=== PATIENT | male | born 1980 | race Caucasian/White ===

== ENCOUNTER 2018-03-21 10:25 | Emergency (ER) | payer MEDICAID ==
[~2018-03-21] VITALS: Ht 170.2 cm; Wt 61.2 kg
[~2018-03-21 10:25] MED LIST: ACET325T14 PO; AMIT25TA PO; AMLO10TA2 PO; ASPI325T17 PO; ATOR10TA9 PO; CEFD300C37 PO; CHOL500045 PO; CINA30TA2 PO; CLON0.1T PO; DARB100V SQ; DIAZ2TAB3 PO; DOCU100C33 PO; ERGO2000 PO; FOLI1CAP9 PO; FOLI1TAB39 PO; HYDR-3237 PO; LANT500T PO; LISI40TA PO; METO25TA35 PO; METR500T PO; OMEP-110 PO; ONDA4TAB13 SL; POLY454P4 PO; TRAZ-136 PO
[2018-03-21] MEDS ORDERED: SODIUM CHLORIDE FLUSH 10ML SYR IVF ONE (11:30)
[2018-03-21] MEDS ORDERED: ENALAPRILAT 1.25 MG/ML, 2ML IV ONE (11:30)
[2018-03-21] MEDS ORDERED: ENALAPRILAT 1.25 MG/ML, 2ML ONE ×2 (11:36→11:37)
[2018-03-21 11:52] LABS: BASOPHILS # (AUTO) 0.07 x10^3/uL (0-0.1); BASOPHILS % (AUTO) 1 % (0-1); EOSINOPHILS # (AUTO) 0.18 x10^3/uL (0-0.4); EOSINOPHILS % (AUTO) 3 % (1-7); LYMPHOCYTES # (AUTO) 0.86 x10^3/uL (1-3.4); LYMPHOCYTES % (AUTO) 14 % (22-44); MD NO; MEAN CORPUSCULAR HGB CONC 33.4 g/dL (33.2-36.2); MEAN CORPUSCULAR VOLUME 92.8 fL (81-97); MEAN PLATELET VOLUME 8.4 fL (7.4-10.4); MONOCYTES # (AUTO) 0.47 x10^3/uL (0.2-0.8); MONOCYTES % (AUTO) 8 % (2-9); NEUTROPHILS # (AUTO) 4.58 x10^3/uL (1.8-6.8); NEUTROPHILS % (AUTO) 74 % (42-75); PLATELET COUNT 317 x10^3/uL (130-400); RED CELL DISTRIBUTION WIDTH 14.6 % (9.4-14.8)
[2018-03-21 11:57] LABS: ALBUMIN 3.9 g/dL (3.4-5.0); ANION GAP 9 mmol/L (5-15); CALCIUM 9.9 mg/dL (8.5-10.1); CHLORIDE 95 mmol/L (98-107); CREATININE 6.76 mg/dL (0.7-1.3)
[2018-03-21 12:16] VITALS: BP 168/93
[2018-03-21] MEDS ORDERED: ACETAMINOPHEN 325 MG TABLET ONE (12:59)
[2018-03-21] MEDS ORDERED: ACETAMINOPHEN 325 MG TABLET PO ONE (13:00)
== END 2018-03-21 13:07 | disposition home or self-care (01) ==
LOC: ED 13:00
DX: I10 Essential (primary) hypertension (principal); Z86.73 Personal history of transient ischemic attack (TIA), and cerebral infarction without residual deficits
CPT/HCPCS: 36415; 71045; 80048; 82040; 85025; 93005; 96374; 99285

== ENCOUNTER 2018-06-06 10:10 | Emergency (ER) | payer MEDICAID ==
[~2018-06-06] VITALS: Ht 170.2 cm; Wt 61.5 kg
[~2018-06-06 10:10] MED LIST changes: -AMLO10TA2 PO; +AMLO10TA6 PO
[2018-06-06] MEDS ORDERED: TRANEXAMIC ACID 100 MG/ML, 10ML TP ONE (10:30)
[2018-06-06] MEDS ORDERED: TRANEXAMIC ACID 100 MG/ML, 10ML ONE (10:54)
[2018-06-06 13:13] VITALS: BP 120/80
== END 2018-06-06 13:14 | disposition home or self-care (01) ==
LOC: ED 13:00
DX: T82.838A Hemorrhage due to vascular prosthetic devices, implants and grafts, initial encounter (principal); Z86.73 Personal history of transient ischemic attack (TIA), and cerebral infarction without residual deficits
CPT/HCPCS: 99283

== ENCOUNTER 2019-07-02 07:05 | Emergency (ER) | payer MEDICAID ==
[~2019-07-02] VITALS: Ht 170.2 cm; Wt 72.7 kg
[~2019-07-02 07:05] MED LIST changes: -AMLO10TA6 PO; +AMLO10TA8 PO; -CLON0.1T PO; +CLON0.1T22 PO; -TRAZ-136 PO; +TRAZ50TA66 PO
--- NOTE | 2019-07-02 07:21 | NUR ---
PATIENT BROUGHT BACK FROM TRIAGE WITH CHIEF COMPLAINT OF LEFT EAR PAIN AND WAGNER. NO COMPLAINTS OF FEVER, COUGH, CP, SOB, OR N/V. THE PATIENT IS ALERT, ORIENTED, WARM AND DRY.
[2019-07-02 07:26] VITALS: BP 115/70
[2019-07-02] MEDS ORDERED: SERT25TA3 PO (07:31)
[2019-07-02] MEDS ORDERED: SEVE800T7 PO (07:31)
--- NOTE | 2019-07-02 08:15 | NUR ---
DISCHARGE INSTRUCTIONS REVIEWED
== END 2019-07-02 08:23 | disposition home or self-care (01) ==
LOC: ED 08:17
DX: H66.93 Otitis media, unspecified, bilateral (principal); I12.0 Hypertensive chronic kidney disease with stage 5 chronic kidney disease or end stage renal disease; N18.6 End stage renal disease; Z99.2 Dependence on renal dialysis
CPT/HCPCS: 99283

== ENCOUNTER 2019-07-17 08:59 | Emergency (ER) | payer MEDICAID ==
[~2019-07-17] VITALS: Ht 170.2 cm; Wt 71.7 kg
[~2019-07-17 08:59] MED LIST changes: +SERT25TA3 PO; +SEVE800T7 PO
[2019-07-17 09:03] VITALS: BP 112/83
--- NOTE | 2019-07-17 09:39 | NUR ---
LEFT EAR PAIN FOR A WEEK. PT STATES YESTERDAY HE ALSO LOST HIS BALANCE AND FELL HITTING HEAD ON BED
[2019-07-17] MEDS ORDERED: ACETAMINOPHEN 500 MG TABLET ONE (09:56)
[2019-07-17] MEDS ORDERED: ACETAMINOPHEN 500 MG TABLET PO ONE (10:00)
--- NOTE | 2019-07-17 10:23 | NUR ---
CT HEAD COMPLETED
== END 2019-07-17 11:06 | disposition home or self-care (01) ==
LOC: ED 11:00
DX: S09.90XA Unspecified injury of head, initial encounter (principal); H60.502 Unspecified acute noninfective otitis externa, left ear; I12.0 Hypertensive chronic kidney disease with stage 5 chronic kidney disease or end stage renal disease; N18.9 Chronic kidney disease, unspecified; Z86.73 Personal history of transient ischemic attack (TIA), and cerebral infarction without residual deficits; Z99.2 Dependence on renal dialysis; W06.XXXA Fall from bed, initial encounter; Y93.89 Activity, other specified; Y92.89 Other specified places as the place of occurrence of the external cause; Y99.8 Other external cause status
CPT/HCPCS: 70450; 93005; 99284